=== PATIENT | male | born 1990 | race Caucasian/White ===

== ENCOUNTER 2017-01-01 17:11 | Emergency (ER) | payer SELFPAY ==
[~2017-01-01] VITALS: Ht 175.3 cm; Wt 65.0 kg
[~2017-01-01 17:11] MED LIST: BACT800T5 PO; CLIN1CAP5 PO
[2017-01-01 17:13] VITALS: BP 137/74; PULSE 86; RESP 20; TEMP 97.7; O2SAT 96
== END 2017-01-01 20:50 | disposition left against medical advice (07) ==
LOC: NED 17:11
DX: R68.89 Other general symptoms and signs (principal)
CPT/HCPCS: 99281